=== PATIENT | male | born 1945 | race Caucasian/White ===

== ENCOUNTER 2020-05-29 16:36 | Outpatient (CLI) | payer OTHER, MEDICARE, SELFPAY | END 2020-05-29 16:37 | disposition home or self-care (01) | LOC: ANHCOVIDVC 16:36 | PROVIDERS: PCP Hospitalist | DX: Z23 Encounter for immunization (principal) | CPT/HCPCS: 0001A; 91300 ==

== ENCOUNTER 2020-06-19 16:32 | Outpatient (CLI) | payer OTHER, MEDICARE, SELFPAY | END 2020-06-19 16:33 | disposition home or self-care (01) | LOC: ANHCOVIDVC 16:33 | PROVIDERS: PCP Hospitalist | DX: Z23 Encounter for immunization (principal) | CPT/HCPCS: 0002A; 91300 ==

== ENCOUNTER 2023-03-06 16:06 | Emergency (ER) | payer OTHER, SELFPAY ==
--- NOTE | ~2023-03-06 | XR_ITS ---
XR hand LT min 3V 03/06/2023 17:25 INDICATION: Table saw laceration to left first finger distally PROCEDURE: 3 views left hand COMPARISON: No prior studies for comparison. FINDINGS: Fracture, dislocation or subluxation is not identified. 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 The soft tissues appear within normal limits. No foreign bodies are identified. IMPRESSION: 1: NO ACUTE BONE OR JOINT ABNORMALITY IDENTIFIED. Reviewed, dictated and finalized at location [facility]. [facility]
[2023-03-06 16:10] VITALS: BP 175/65; PULSE 75; RESP 16; TEMP 36.4; O2SAT 100
--- NOTE | 2023-03-06 17:16 | ED.WOUNDLAC ---
HPI - Wound/Laceration General Chief Complaint: Wound/Laceration Stated Complaint: L THUMB LAC Time Seen by Provider: 03/06/23 16:30 History of Present Illness HPI narrative: 77-year-old male reports for evaluation for a laceration to the distal phalanx of his L 1st finger that occurred prior to arrival. Patient states he was working in his wood shop and was signed a piece of plywood with a table saw. States the piece of wood flew up into his left finger thumb, he reacted and hit his left thumb on the table saw. States his tetanus is up-to-date. Bleeding controlled. He is not anticoagulated. Related Data Allergies Allergy/AdvReac Type Severity Reaction Status Date / Time No Known Allergies Allergy Unknown Verified 04/07/14 07:45 Review of Systems Review of Systems: CONSTITUTIONAL: Denies fever, chills, or sweats. EYES: Denies visual changes, redness, or discharge. ENT: Denies rhinorrhea, congestion, sore throat, or otalgia. CARDIOVASCULAR: Denies chest pain, palpitations, or edema. RESPIRATORY: Denies cough or dyspnea. GASTROINTESTINAL: Denies abdominal pain, nausea, vomiting, or diarrhea. GENITOURINARY: Denies dysuria or hematuria. SKIN: See HPI MUSCULOSKELETAL: Denies back pain, joint pain, or myalgia. NEUROLOGIC: Denies headache, numbness, or weakness. PSYCHIATRIC: Denies anxiety or depression. [facility] Family History Family History Sibling Patient's sister is in good health Mother Cerebrovascular accident, Onset Age: 87 Patient's mother is , Onset Age: 87 Social History Social History Smoking status: Never smoker Alcohol intake: current Exam Narrative: GENERAL: Well-appearing, well-nourished, and in no acute distress. HEAD: Normocephalic, atraumatic. NECK: Supple. CHEST: Clear to auscultation. No respiratory distress. HEART: Regular rate and rhythm. No murmur heard. Normal peripheral pulses. ABDOMEN: Soft, nontender, nondistended, normal active bowel sounds. EXTREMITIES: Normal range of motion. No edema. SKIN: LUE: 1cm jagged, irregular, stellate laceration to the distal phalanx of the 1st finger. Bleeding controlled. No deep structures or foreign bodies visualized. Cap refill less than 2. Radial pulse 2 +. Sensation intact throughout. Full range of motion of finger NEURO: No focal deficits. Alert and oriented x3 Course Vital Signs Vital signs: Vital Signs Temperature 97.6 F 03/06/23 16:10 Pulse Rate 75 03/06/23 16:10 Respiratory Rate 16 03/06/23 16:10 Blood Pressure 175/65 H 03/06/23 16:10 Pulse Oximetry 100 03/06/23 16:10 Oxygen Delivery Room Air 03/06/23 16:10 Temperature 97.6 F 03/06/23 16:10 Pulse Rate 75 03/06/23 16:10 Respiratory Rate 16 03/06/23 16:10 Blood Pressure 175/65 H 03/06/23 16:10 Pulse Oximetry 100 03/06/23 16:10 Oxygen Delivery Room Air 03/06/23 16:10 Procedures Laceration Laceration 1: Date: 03/06/23 Site: upper extremity Side (If applicable): left Size (cm): 1 Description: stellate and irregular Depth: simple, single layer Local Anesthetic: lidocaine 1% Amount of anesthesia used (mL): 2 Pre-repair: wound explored, irrigated and irrigated extensively ====== Skin Level ====== Skin layer closed with: nylon Size (cm): 5-0 Number of sutures: 4 Technique: simple, interrupted ====== Subcutaneous Layer ====== ====== Muscle Layer ====== ====== Tendon Layer ====== MDM - Wound/Laceration MDM Narrative Medical decision making narrative: 77-year-old male reports for evaluation for laceration to the distal phalanx of his left 1st finger that occurred prior to arrival. See HPI for further history. Vitals significant for elevated blood pressure 175/65, otherwise unremarkable. Exam
[2023-03-06] MEDS: LIDOCAINE HCL 1% LOCAL INJ 10 ML VIAL INFILTRATE (17:57)
[2023-03-06 18:34] VITALS: BP 160/78; PULSE 77; RESP 18; TEMP 36.6; O2SAT 99
== END 2023-03-06 18:37 | disposition home or self-care (01) ==
PROVIDERS: Emergency Provider Physician Assistant; PCP Internal Medicine
DX: S61.012A Laceration without foreign body of left thumb without damage to nail, initial encounter (principal); W26.8XXA Contact with other sharp object(s), not elsewhere classified, initial encounter
CPT/HCPCS: 12001; 73130; 99283

== ENCOUNTER 2024-07-23 09:44 | Outpatient (CLI) | payer OTHER, SELFPAY ==
--- NOTE | 2024-07-23 10:00 | ECG_ITS ---
Test Date: 2024-07-23 10:16:17 Measurements Intervals [place] Rate: 57 P: 79 DC: 191 QRS: 47 QRSD: 97 T: 43 QT: 396 QTc: 388 Interpretive Statements SINUS BRADYCARDIA LOW QRS VOLTAGE IN PRECORDIAL LEADS [QRS DEFLECTION < 1.0 mV IN CHEST LEADS] No previous ECG available for comparison Electronically Signed On 07-23-2024 15:01:50 CDT by J Luis Zhao M.D.
--- OUTSIDE RECORDS SUMMARY | 2024-07-23 10:00 | XMS_ITS | Clinical Summary ---
Author Organization [facility] Address [address] [place] [address] Care Team Providers Care Launch Engineer Name Role Phone Unavailable Primary Care Provider Unavailabl e Social History Tobacco Use Types Packs/Day Years Used Date Smoking Tobacco: Never Assessed Sex and Gender Information Value Date Recorded Sex Assigned at Not on file Legal Sex Male 5:41 PM CDT Gender Identity Not on file Sexual Orientation Not on file Plan of Treatment Health Maintenance Due Date Last Done Comments Hepatitis C 10/28/1963 DTaP, Tdap and Td Vaccines ( 1 - Tdap) 1964 Pneumococcal Vaccine: 50+ Ye ars (1 of 1 - PCV) 10/28/1995 Zoster Vaccines (1 of 2) 10/28/1995 RSV Immunization or 60+ Years (1 - 1-dose 75+ series) 2020 COVID-19 Vaccine ( - 2023-2 5 season) 2023 Meningococcal B Vaccine Aged Out No l onger eligible based on patient's age to complete this topic Meningococcal Vaccine Aged Out No julio cesar karoline eligible based on patient's age to complete this topic RSV Immunizations Under 20 Months Aged Out No longer eligible based on patient's age to complete this topic
[2024-07-23 10:36] LABS: Basophils Percent Auto 0.5 % (0.2-1.2); Eosinophils Absolute Auto 0.3 K/mm3 (0-0.3); Eosinophils Percent Auto 4.6 % (0-4.4); Hematocrit 41.3 % (42.0-52.0); Hemoglobin 13.1 g/dL (14.0-18.0); Immature Granulocyte Absolute 0.02 K/mm3 (0.00-0.031); Immature Granulocyte Percent A 0.3 % (0-0.5); Lymphocytes Absolute Auto 1.82 K/mm3 (0.9-3.2); Lymphocytes Percent Auto 28.7 % (18.3-44.2); Mean Corpuscular HGB Conc 31.7 g/dl (32-36); Mean Corpuscular Volume 94.5 fl (80-100); Mean Platelet Volume 10.7 fl (7.4-10.4); Monocytes Absolute Auto 0.6 K/mm3 (0.1-0.6); Monocytes Percent Auto 10.1 % (2.6-8.5); Neutrophils Absolute Auto 3.5 K/mm3 (1.3-6.7); Neutrophils Percent Auto 55.8 % (45.5-73.1); Platelet Count Result 187 k/mm3 (150-375); Red Blood Count 4.37 M/mm3 (4.6-6.20); Red Cell Distribution Width 14.3 % (11.5-14.5); White Blood Count 6.3 K/mm3 (4.5-10.0)
[2024-07-23 10:49] LABS: Anion Gap 9 mmol/L (4-12); Blood Urea Nitrogen 20 mg/dL (9-20); Calcium 9.2 mg/dL (8.4-10.2); Carbon Dioxide 27 mmol/L (22-30); Chloride 103 mmol/L (98-107); Estimated Glomerular Filt Rate > 60; Glucose 120 mg/dL (65-110); Sodium 139 mmol/L (137-145)
[2024-07-23 10:53] LABS: Prothrombin Time 13.5 Seconds (11.1-14.7)
[2024-07-23 10:54] LABS: Partial Thromboplastin Time 27.2 Seconds (22.3-36.8)
== END 2024-07-23 09:45 | disposition home or self-care (01) ==
LOC: ANHSURGERY 09:51
PROVIDERS: PCP Internal Medicine; Visit Provider Urology
DX: Z01.818 Encounter for other preprocedural examination (principal); N21.0 Calculus in bladder; R94.31 Abnormal electrocardiogram [ECG] [EKG]; R00.1 Bradycardia, unspecified; I10 Essential (primary) hypertension
CPT/HCPCS: 36415; 80048; 85025; 85610; 85730; 87086; 87181; 93005

== ENCOUNTER 2024-07-31 16:17 | Observation (INO) | payer OTHER, SELFPAY ==
[2024-07-22 10:14] VITALS: BMI 24.6
--- NOTE | 2024-07-22 10:39 | PC.NURSE ---
Report to the Outpatient Waiting Room, entrance under the green pavilion located off [facility], at time ___7:30AM____ on date ___07/30/24____. Planned Procedure Time: ___9:30AM .? Time changes happen often and if your time is changed the preop area will call you the afternoon before. - You and your visitor will be asked to self-screen and do not enter if you have any COVID symptoms. Please call surgeon if you need to reschedule. - A mask is optional within the hospital at this time. Patients may have clear liquids (water, carbonated beverages, clear teas, apple juice) until 3 hours prior to surgery (6:30AM) with a maximum of 20 ounces. - No food from midnight until time of surgery and no smoking, or chewing tobacco (or any form of nicotine). No chewing gum, candy or mints. Take only the following medications with a SIP of water on the morning of surgery: ____NONE DO NOT STOP ANY OF YOUR OTHER PRESCRIPTION MEDICATIONS PRIOR TO SURGERY EXCEPT THE FOLLOWING Hold all vitamins and supplements for 3 days per anesthesiologist.-LAST DOSE 07/26/24. Please no make-up, nail stateless, hairspray, perfume, deodorant, or body powder the day of surgery.? No jewelry (including any body piercings) or valuables the day of surgery, leave them at home.? Please take a shower or bath the night before, or the morning of, surgery with an antibacterial soap.? Wear comfortable, loose fitting clothing.? - Jewelry must be removed prior to entering the operating room.? Rings and piercings that are not removed may be cut off. - The hospital will not accept responsibility for valuables.? - Please leave all valuables, including medications, at home the day of surgery. If you are going home after surgery, a licensed equipment driver must drive you home.? - NO public transportation without another adult if you receive anesthesia. - We recommend that an adult stay with you for 24 hours following discharge. - We also recommend that you do not drive, make important decision, drink alcoholic beverages, or take any drugs that were not prescribed by your health care provider for at least 24 hours after your discharge time. Follow any additional instructions given to you from your surgeon. Telephone instructions given to ___PATIENT & WIFE and asked if any additional questions and then verbalized understanding. Patient advised to call surgeon office or pre surgery nurse liaison [phone] if any additional questions.
[2024-07-30] VITALS (12 sets, daily range): BP systolic 128–147; BP diastolic 47–75; PULSE 55–71; RESP 14–17; TEMP 36–36.3; O2SAT 98–100; BMI 25.1
--- OUTSIDE RECORDS SUMMARY | 2024-07-30 00:26 | XMS_ITS | Continuity of Care Document ---
Author Organization [facility] [place] Address [address] [place] [address] Phone Care Team Providers Care Audio Engineer Name Role Phone Ender Cochran NP Unavailable Unavailable Allergies, Adverse Reactions, Alerts Substance Reaction Status Criticality No Known Allergies Active No Inform ation Medications Medication Instructions Dosage Effective Dates (start - stop) Status Comments finasteride 5 mg tablet take 1 tablet by oral route every day 5 MG - Active tamsulosin 0.4 mg capsule take 1 capsule by oral route every day 1/2 hour following the same meal each day 0.4 MG - Active propranolol 20 mg tablet take 1 tablet by oral route every evening 20 MG - Active Multiple Vitamins tablet take 1 tablet by oral route every day 1 tablet - Active Procedures Procedure Date CBC, INC PLATELETS AND DIFFERENTIAL COMPREHEN METABOLIC PANEL CMP HEMOGLOBIN A1C HGA1C, GLYCO LIPID PANEL THYROID STIMULATION HORMONE(TSH) 2024 URINALYSIS, REFLEX (UA) FALL RISK ASSESSMENT DOC'D ROUTINE VENIPUNCTURE [place] OFFICE [id number]-[id number] BODY MASS INDEX DOCD SYST BP LT 130 MM HG DIAST BP < 80 MM HG CBC, INC PLATELETS AND DIFFERENTIAL COMPREHEN METABOLIC PANEL CMP THYROID STIMULATION HORMONE(TSH) 2023 HEMOGLOBIN A1C HGA1C, GLYCO Pt inelig neg scrn depres ROUTINE VENIPUNCTURE IL PNEUMOVAX ADM MEDICARE Pneumococcal Conjugate Vaccine (PCV20) S OFFICE [id number] BODY MASS INDEX DOCD SYST BP LT 130 MM HG DIAST BP < 80 MM HG BASIC METABOLIC PANEL(BMP) MICROALBUMIN, QN (URINE) CREATININE, (U-R) PSA, TOTAL URINALYSIS, DIPSTICK (UA) - Office Lab J ROUTINE VENIPUNCTURE [place] OFFICE [id number]-[id number]-[id number] BODY MASS INDEX DOCD SYST BP GE 130 - 139MM HG DIAST BP 80-89 MM HG CBC, INC PLATELETS AND DIFFERENTIAL COMPREHEN METABOLIC PANEL CMP LIPID PANEL THYROID STIMULATION HORMONE(TSH) 2023 URINALYSIS, REFLEX (UA) FALL RISK ASSESSMENT DOC'D PRES/ABSN URINE INCON ASSESS ROUTINE VENIPUNCTURE IL OFFICE [id number] BODY MASS INDEX DOCD SYST BP LT 130 MM HG DIAST BP < 80 MM HG OFFICE AMHBE-[id number] TELEPHONE E&M SERVICE BY A PHYSICIAN;5-1 0 MINUTES OF MEDICAL DISCUSSION CBC, INC PLATELETS AND DIFFERENTIAL COMPREHEN METABOLIC PANEL CMP 3 HEMOGLOBIN A1C HGA1C, GLYCO LIPID PANEL MICROALBUMIN, QN (URINE) CREATININE, (U-R) THYROID STIMULATION HORMONE(TSH) 2022 Pt inelig neg scrn depres ROUTINE VENIPUNCTURE [place] OFFICE [id number] BODY MASS INDEX DOCD SYST BP LT 130 MM HG DIAST BP < 80 MM HG CBC, INC PLATELETS AND DIFFERENTIAL COMPREHEN METABOLIC PANEL CMP 3 LIPID PANEL THYROID STIMULATION HORMONE(TSH) 2022 URINALYSIS, REFLEX (UA) FALL RISK ASSESSMENT DOC'D PRES/ABSN URINE INCON ASSESS ROUTINE VENIPUNCTURE [place] OFFICE OMMUQ-[id number]-GIDAZZCY BODY MASS INDEX DOCD SYST BP GE 130 - 139MM HG DIAST BP < 80 MM HG COVID-19, Amplified Probe Technique HETEROPHILE MONO TEST (OFFICE LAB) INFLUENZA, RAPID INFLUENZA B, RAPID - OFFICE LAB 022 Pt inelig neg scrn depres CBC, INC PLATELETS AND DIFFERENTIAL COMPREHEN METABOLIC PANEL CMP 2 HEMOGLOBIN A1C HGA1C, GLYCO LIPID PANEL ROUTINE VENIPUNCTURE OFFICE [id number]-[id number] BODY MASS INDEX DOCD SYST BP LT 130 MM HG DIAST BP < 80 MM HG PSA, TOTAL, SCREENING MEDICARE ONLY FALL RISK ASSESSMENT DOC'D PRES/ABSN URINE INCON ASSESS COMPREHEN METABOLIC PANEL CMP 2 HEMOGLOBIN A1C HGA1C, GLYCO LIPID PANEL THYROID STIMULATION HORMONE(TSH) 2021 URINALYSIS, REFLEX (UA) ROUTINE VENIPUNCTURE OFFICE [id number]-[id number]-[id number] BODY MASS INDEX DOCD SYST BP LT 130 MM HG DIAST BP < 80 MM HG Admin influenza virus vac FLU VACC PRSV FREE INC ANTIG Pt inelig neg scrn depres CBC, INC PLATELETS AND DIFFERENTIAL COMPREHEN METABOLIC PANEL CMP 1 LIPID PANEL PSA, TOTAL, SCREENING MEDICARE ONLY THYROID STIMULATION HORMONE(TSH) 2020 ROUTINE VENIPUNCTURE OFFICE [id number] BODY MASS INDEX DOCD SYST BP LT 130 MM HG DIAST BP < 80 MM HG Pt inelig neg scrn depres CBC, INC PLATELETS AND DIFFERENTIAL COMPREHEN METABOLIC PANEL CMP 1 LIPID PANEL THYROID STIMULATION HORMONE(TSH) 2020 ROUTINE VENIPUNCTURE OFFICE [id number]-[id number] BODY MASS INDEX DOCD SYST BP GE 130 - 139MM HG DIAST BP < 80 MM HG Admin influenza virus vac FLU VACC PRSV FREE INC ANTIG CBC, INC PLATELETS AND DIFFERENTIAL COMPREHEN METABOLIC PANEL CMP 0 LIPID PANEL ROUTINE VENIPUNCTURE OFFICE [id number]-[id number] BODY MASS INDEX DOCD SYST BP GE 130 - 139MM HG DIAST BP < 80 MM HG FALL PLAN OF CARE DOC'D URINE INCON PLAN DOC'D PRES/ABSN URINE INCON ASSESS Pt inelig neg scrn depres CBC, INC PLATELETS AND DIFFERENTIAL COMPREHEN METABOLIC PANEL CMP 0 PSA, TOTAL, SCREENING MEDICARE ONLY THYROID STIMULATION HORMONE(TSH) 2019 ROUTINE VENIPUNCTURE OFFICE [id number] BODY MASS INDEX DOCD SYST BP GE 130 - 139MM HG DIAST BP < 80 MM HG Admin influenza virus vac FLU VACC 4 NIGEL 0.5mL DOSAGE CBC, INC PLATELETS AND DIFFERENTIAL COMPREHEN METABOLIC PANEL CMP 9 LIPID PANEL PARATHYROID HORMONE (PTH) THYROID STIMULATION HORMONE(TSH) 2018 URINALYSIS, DIPSTICK (UA) - Office Lab J ROUTINE VENIPUNCTURE OFFICE [id number]-BHS-[id number] BODY MASS INDEX DOCD SYST BP LT 130 MM HG DIAST BP < 80 MM HG HEMOGLOBIN A1C HGA1C, GLYCO Advance Directives Directive Yes / No Effective Date File Name Life Support Not Answered N/A N/A Intubation Not Answered N/A N/A Antibiotics Not Answered N/A N/A IV Fluid Support Not Answered N/A N/A Tube Feed Not Answered N/A N/A Other Directive N/A N/A WARNING:The information contained in this section is historical and is provided for information only and does not constitute a legal document or any assurance that the information is still accurate. Please verify the information with the kim of the legal document before using it for clinical purposes. Encounters Encounter Description Practice Location Reason(s) For Visit Diagnoses Date Provider Providers Copied on Encounter [facility] [place], [address], [place], [place], [id number] , [place] tel: [phone] [facility] [place] No Information 5 Dimas Handley. [address] [place], [address], [place]. tel: [phone] [facility], [address], [place], [place], [address] , [place] tel: [phone] [facility] No Information 5 Kia Ferrern. [address], [id number] , . tel: [phone] Referring Provider: Ender Cochran, [address] [place] [address], [place], [address]. tel:[phone] OFFICE RRUQD-RBU-ZB [facility], [address], [place], [place], [address] , [place] tel: [phone] [facility] 6 month (chief complaint)C hronic Conditions (chief complaint) Essential (primary) hypertensionMix ed hyperlipidemiaE ssential tremorPrediabet esBenign prostatic hyperplasia with lower urinary tract symptomsNocturi a 5 [facility]. [address] [place] [address], [address], [place]. tel: [phone] Referring Provider: Tabitha Mancuso, [address] [place] [address], [address] . tel:[phone] [facility], [address], [place], [place], [address] , [place] tel: [phone] [facility] No Information 4 Kia Ferrern. [address], [id number] , . tel: [phone] Referring Provider: Ender Cochran, [address] [place] [address], [place], [address]. tel:[phone] OFFICE BQCBJ-IYB-EW [facility], [address], [place], [place], [address] , [place] tel: [phone] [facility] 6 month (chief complaint)C hronic Conditions (chief complaint) Essential (primary) hypertensionNoc turiaBenign prostatic hyperplasia with lower urinary tract symptomsPrediab etesEssential tremorMixed hyperlipidemia Sep-0 4 Dimas [facility]. [address] [place] [address], [address], [place]. tel: [phone] Referring Provider: Tabitha Mancuso, [address] [place] [address], [address] . tel:[phone] [facility], [address], [place], [place], [address] , tel: [phone] [facility] No Information 4 Kia Hager. [address], [id number] , [place]. tel: [phone] Referring Provider: Cary Artis, [address] [place] [address], [address] . tel:[phone] OFFICE ULVBY-JBK-NO [facility], [address], [place], [place], [address] , tel: [phone] [facility] urinary issues (chief complaint)C hronic Conditions (chief complaint)c hronic conditions (chief complaint) Body mass index [BMI] 24.0-24.9, adultNocturiaUr inary incontinence, unspecified typeMicroscopic hematuriaLeukoc ytes in urineEssential (primary) hypertension 4 Steff Townsend. [address] [place] [address], [id number] , [place]. tel: [phone] Referring Provider: Tabitha Mancuso, [address] [place] [address], [address] . tel:[phone] [facility], [address], [place], [place], [address] , [place] tel: [phone] [facility] No Information 4 Sagar Lu. [address] [place] [address], [id number] , [place]. tel: [phone] [facility] [address], [place], [place], [address] , tel: [phone] [facility] No Information 4 Kia Hager. [address] [facility], [address] [place], [id number] , . tel: [phone] Referring Provider: Cary Artis, [address] [place] [address], [address] . tel:[phone] [facility], [address], [place], [place], [address] , tel: [phone] [facility] Chronic Conditions (chief complaint) Body mass index [BMI] 24.0-24.9, adultEssential (primary) hypertensionMix ed hyperlipidemiaE ssential tremorNonrheuma tic mitral (valve) prolapse 4 Steff Townsend. [address] [place] [address], [id number] , [place]. tel: [phone] Referring Provider: Tabitha Mancuso, [address] [place] [address], [address] . tel:[phone] [facility], [address], [place], [place], [address] , [place] tel: [phone] [facility] suture removal (chief complaint) Encounter for removal of sutures 4 Dimas Handley. [address] [place] [address], [address], [place]. tel: [phone] Referring Provider: Tabitha Mancuso, [address] [place] [address], [address] . tel:[phone] TELEPHONE E&M SERVICE BY A PHYSICIAN;5- 10 MINUTES OF MEDICAL DISCUSSION [facility], [address], [place], [place], [address] , [place] tel: [phone] [facility] Encounter for follow-up examination after completed treatment for conditions other than malignant neoplasm 3 Sagar Lu. [address] [place] [address], [id number] , [place]. tel: [phone] Referring Provider: Tabitha Mancuso, [address] [place] [address], [address] . tel:[phone] [facility], [address], [place], [place], [address] , tel: [phone] [facility] No Information 3 Sagar Lu. [address] [place] [address], [id number] , [place]. tel: [phone] [facility], [address], [place], [place], [address] , tel: [phone] [facility] Services No Information 3 Kia Hager. [address] [place] [address], [id number] , . tel: [phone] Referring Provider: Tabitha Mancuso, [address] [place] [address], [address] . tel:[phone] OFFICE YYDAS-BSQ-IC TAILED [facility], [address], [place], [place], [address] , tel: [phone] [facility] 6 month appt (chief complaint)O ther (chief complaint)C hronic Conditions (chief complaint) Essential (primary) hypertensionMix ed hyperlipidemiaP rediabetesEssen tial tremor 3 Sagar Lu. [address] [place] [address], [id number] , [place]. tel: [phone] Referring Provider: Tabitha Mancuso, [address] [place] [address], [address] . tel:[phone] [facility], [address], [place], [place], [address] , tel: [phone] [facility] No Information 3 Kia Hager. [address], [id number] , . tel: [phone] Referring Provider: Cary Artis, [address] [place] [address], [address] . tel:[phone] OFFICE [facility], [address], [place], [place], [address] , [place] tel: [phone] [facility] Chronic Conditions (chief complaint) Essential (primary) hypertensionMix ed hyperlipidemiaN onrheumatic mitral (valve) prolapseEssenti al tremor 3 Steff Townsend. [address] [place] [address], [id number] , [place]. tel: [phone] Referring Provider: Tabitha Mancuso, [address] [place] [address], [address] . tel:[phone] [facility], [address], [place], [place], [address] , [place] tel: [phone] [facility] Sinus pressure (chief complaint) Sinus pressure 2 Sagar Lu. [address] [place] [address], [id number] , [place]. tel: [phone] Referring Provider: Tabitha Mancuso, [address] [place] [address], [address] . tel:[phone] [facility]ICE [facility], [address], [place], [place], [address] , [place] tel: [phone] [facility] Chronic Conditions (chief complaint)v isual chages (chief complaint) Body mass index [BMI] 23.0-23.9, adultMixed hyperlipidemiaE ssential (primary) hypertensionNon rheumatic mitral (valve) prolapseScreeni ng for prostate cancerPrediabet esVisual changes 2 Steff Townsend. [address] [place] [address], [id number] , [place]. tel: [phone] Referring Provider: Tabitha Mancuso, [address] [place] [address], [address] . tel:[phone] [facility], [address], [place], [place], [address] , tel: [phone] [facility] No Information 2 Sagar Lu. [address] [place] [address], [id number] , . tel: [phone] OFFICE KUTYD-AZR-JZ [facility], [address], [place], [place], [address] , tel: [phone] [facility] Chronic Conditions (chief complaint) Essential (primary) hypertensionNon rheumatic mitral (valve) prolapseMixed hyperlipidemiaI mpaired fasting glucose 2 Dimas Handley. [address] [place] [address], [address], [place]. tel: [phone] Referring Provider: Tabitha Mancuso, [address] [place] [address], [address] . tel:[phone] [facility], [address], [place], [place], [address] , [place] tel: [phone] [facility] No Information 1 Akua [place]. [address] [place] [address], [id number] , [place]. tel: [phone] Referring Provider: Tabitha Mancuso, [address] [place] [address], [address] . tel:[phone] OFFICE HMIHC-DQA-OF [facility], [address], [place], [place], [address] , [place] tel: [phone] [facility] Chronic Conditions (chief complaint) Nonrheumatic mitral (valve) prolapseEssenti al tremorEssential (primary) hypertensionMix ed hyperlipidemia 1 Sagar Lu. [address] [place] [address], [id number] , [place]. tel: [phone] Referring Provider: Tabitha Mancuso, [address] [place] [address], [place], [address] . tel: OFFICE UMVZQ-DNU-AT [facility], [address], [place], [place], [address] , tel: [phone] [facility] Chronic Conditions (chief complaint) Essential tremorNonrheuma tic mitral (valve) prolapseEssenti al hypertensionBod y mass index (BMI) 24.0-24.9, adult 1 Akua Lennie. [address] [place] [address], [id number] , [place]. tel: [phone] Referring Provider: Braxton rosas, [address] [place] [address], [address] . tel:[phone] [facility], [address], [place], [place], [address] , tel: [phone] [facility] No Information 0 Sagar Lu. [address] [place] [address], [id number] , [place]. tel: [phone] Referring Provider: Tabitha Mancuso, [address] [place] [address], [address] . tel:[phone] OFFICE ORIPZ-JNJ-WK [facility], [address], [place], [place], [address] , tel: [phone] [facility] Chronic Conditions (chief complaint) Essential tremorNonrheuma tic mitral (valve) prolapse 0 Steff Townsend. [address] [place] [address], [id number] , [place]. tel: [phone] Referring Provider: Tabitha Mancuso, [address] [place] [address], [address] . tel:[phone] OFFICE HCNVA-KYU-KQ [facility], [address], [place], [place], [address] , [place] tel: [phone] [facility] MVP f/u (chief complaint)C hronic Conditions (chief complaint) Nonrheumatic mitral (valve) prolapseEssenti al tremor 0 Sagar Lu. [address] [place] [address], [id number] , [place]. tel: [phone] Referring Provider: Tabitha Mancuso, [address] [place] [address], [address] . tel:[phone] [facility], [address], [place], [place], [address] , tel: [phone] [facility] No Information 9 Sagar Lu. [address] [place] [address], [id number] , [place]. tel: [phone] Referring Provider: Tabitha Mancuso, [address] [place] [address], [address] . tel:[phone] OFFICE TNUQN-NAA-RI PANDED [facility], [address], [place], [place], [address] , tel: [phone] [facility] Chronic Conditions (chief complaint) Benign essential tremorMitral valve prolapseImpaire d fasting glucose 9 Dimas Handley. [address] [place] [address], [address], [place]. tel: [phone] Referring Provider: Tabitha Mancuso, [address] [place] [address], [address] . tel:[phone] [facility], [address], [place], [place], [address] , tel: [phone] [facility] Body mass index (BMI) 23.0-23.9, adultMitral valve prolapseBenign essential tremor 9 Sagar Lu. [address] [place] [address], [id number] , [place]. tel: [phone] Referring Provider: Tabitha Mancuso, [address] [place] [address], [address] . tel:[phone] [facility], [address], [place], [place], [address] , tel: [phone] Administration No Information 3-201 9 Sagar Lu. [address] [place] [address], [id number] , . tel: [phone] [facility], [address], [place], [place], [address] , tel: [phone] [facility] No Information 5 8 Sagar Lu. [address] [place] [address], [id number] , . tel: [phone] [facility], [address], [place], [place], [address] , tel: [phone] [facility] No Information 0 8 Sagar Lu. [address] [place] [address], [id number] , [place]. tel: [phone] Referring Provider: Tabitha Mancuso, [address] [place] [address], [address] . tel:[phone] [facility], [address], [place], [place], [address] , tel: [phone] [facility] Body mass index (BMI) 24.0-24.9, adultEssential hypertension 9-201 8 Dimas Gaylin. [address] [place] [address], [address], [place]. tel: [phone] Referring Provider: Tabitha Mancuso, [address] [place] [address], [address] . tel:[phone] [facility], [address], [place], [place], [address] , tel: [phone] [facility] Screening for prostate cancerEssential hypertensionMit ral valve prolapseDecreas ed pedal pulses 8 Steff Townsend. [facility], [place], [id number] , [place]. tel:[phone] Referring Provider: Courtney Tran, [address] [facility] [address], [place], [address]. tel:[phone] Family History Family Member Type Diagnosis Age At Onset Mother Problem (finding) Cardiovascular disease Sister Problem (finding) Chronic obstru ctive pulmonary disease, unspecified COPD type (Cause Of ) 69 Sister Problem (finding) Tobacco user Sister Problem (finding) Father Problem (finding) sudden Brother Problem (finding) malignant neop lasm of liver (Cause Of ) 48 Sister Problem (finding) Sister Problem (finding) Sister Problem (finding) Family history unknown Sister Problem (finding) Acute anxiety Immunizations Vaccine Date Status Comments Pneumococcal conjugate PCV20 administered Source: New Immunization Record Fluzone Quad, split virus, 0.5mL dosage administered Note: [facility] ; Source: Other Provider Tdap administered Note: Vickis ; Source: Other Provider ZangZing (Diluent Recon[employer] d) COVID19 Vaccine, 0.3mL per dose, 2 doses, administered 21 days apart administered Note: Stephanie ; Taisha ce: Other Provider Fluzone High-Dose, high dose , preservative free administered Source: New Immuniza tion Record Pfizer-BioNTech COVID19 Vaccine, 0.3mL per dose, 2 doses, administered 21 days apart administered Note: vamshi ; Source: Other Provider Pfizer-BioNTech COVID19 Vaccine, 0.3mL per dose, 2 doses, administered 21 days apart administered Note: vamshi ; Source: Other Provider Fluzone High-Dose, high dose , preservative free administered Source: New Immuniza tion Record Fluzone Quad, split virus, 0.5mL dosage administered Source: New Immuniza tion Record SHINGRIX (Zoster vaccine recombinant, adjuvanted) administered Note: milton ; Source: Other Provider SHINGRIX (Zoster vaccine recombinant, adjuvanted) administered Note: Darien ; Source: Other Provider Fluzoemily Tijerina, split virus, 0.5mL dosage administered Source: New Immuniza tion Record Pneumococcal conjugate PCV 13 administere d Source: Other Provider Pneumococcal polysaccharide PPV23 administered Source: Other Provid er Zoster administered Source: Other P rovider Payers Payer name Insurance type Covered alliance party ID Authoriza tion(s) [employer] MB [id number] [employer] MB [id number] [employer] MB [id number] [employer] MB [id number] [employer] MB [id number] Social History Type Description Quantity Date Captured Comments Alcohol Use Details Unknown Caffeine Use Details Unknown Tobacco Use Status No Information Smoking Status No Information Sex Male Sexual Orientation Straight or heterosexual Gender Identity Male Chief Complaint And Reason For Visit No Information Reason For Referral Reason For Referral No Information Plan Of Treatment Date Type Action Status Goal Dietary manageme nt education, guidance, and counseling completed Goal Dietary manageme nt education, guidance, and counseling completed Goal Dietary manageme nt education, guidance, and counseling completed Goal Dietary manageme nt education, guidance, and counseling completed Referral Referred To: [facility] - Any Provider Ordered: Referrals: Urology. [facility] - Any Provider. Evaluation/diagnostic/treatment - Level 3 ordered Referral Referred To: Naresh Quinones [address] [place], [phone] Ordered: Referrals: Ophthalmology. Naresh Quinones. Evaluation/diagnostic/treatment - Level 3 ordered Appointment Phil Pablo BOOKED History Of Present Illness Encounter Date Complaint History Of Prese nt Illness Chronic Conditions *See Chronic Conditions HPI 6 month Chronic Conditions *See Chronic Conditions HPI 6 month Here for 6-month follow-up. States that he retired from [employer] on November 09. He is spending a lot more time doing woodworking in his shop. urinary issues Patient presents for acute encounter with complaints of nocturia and urinary incontinence since April.reports prior to April he was sleeping through the night without having to get up to urinatehas been urinating approximately 3 times every evening and waking up incontinent up to 3 times each nightHe denies dysuria, fever, chills, back pain, and abdominal pain.He denies a family history of prostate cancer. PSA was normal last October.Urine was positive for leukocytes and blood.He denies polyuria, polydipsia, and polyphagia. A1c was normal last year.denies urinary frequency and hesitancy during the dayis drinking 1.5 cups of coffee and occasional iced tea Chronic Conditions *See Chronic Conditions HPI chronic conditions *See Chronic Conditions HPI Chronic Conditions *See Chronic Conditions HPI suture removal pt here today to have 4 sutures removed from left thumb, pt was seen in ER on 03/06/23.Removed coban and band-aids from the thumb, pt stated he had been changing dressing everyday and cleaning and using neosporin.after removing the 4 sutures wound still looked somewhat open so I applied 3 steri strips and informed pt to leave on until they fall off on their own.The wound was very clean, no drainage or redness.Pt verbalized understanding to leave steri strips on and to keep them cleanPt informed to call if he notices any redness or drainage from wound Chronic Conditions *See Chronic Conditions HPI 6 month appt -Hypertensionpt denies headaches, dizziness, nausea, lightheadedness, chest pain, palpitationspt does not monitor BP at homept verbalized he is compliant w/ medication -Prediabetespt denies increase urinary frequency, blurred visionpt working on healthier diet choices, exercise as tolerated.Weight gained since last OV: 1 lb Other pt due for:n/aRe cent visits:n/aFuture appt:n/aVaccinations due:pt up to date on vaccinationsOutstanding referrals:n/aQuestions:No questions 6 month Ophthalmology - Pt unsureSent request for consult notes Chronic Conditions *See Chronic Conditions HPI Sinus pressure Pt positive for covid. Calvin celis sent. visual chages The patient repo rts worsening vision at night.is due for eye exam Chronic Conditions *See Chronic Conditions HPI Chronic Conditions *See Chronic Conditions HPI Chronic Conditions *See Chronic Conditions HPI Chronic Conditions *See Chronic Conditions HPI Chronic Conditions *See Chronic Conditions HPI MVP f/u Chronic Conditions *See Chronic Conditions [facility] Chronic Conditions *See Chronic Conditions HPI Functional Status Date Functional Assessmen t No Information Instructions Date Instruction Additional Infor matt As above.Call with a claudio questions or concernsLabs todayReturn in 6 months Related to Nocturia Continue on the prop ranolol. Call if this worsens Related to Essential tremor Continue on current medication. Blood pressure stable Related to Essential (primary) hypertension Continue current med ication and follow-up with urology.I will take care of the referral Related to Benign prostatic hyperplasia with lower urinary tract symptoms Levels will be checked. Related to Mixed hyperlipidemia This is noted on pre vious labs.You are doing an excellent job staying active. Keep up with your workout routine. Related to Prediabetes Disease process Fall Risk Prevention Urinary Incontinence Continue with well-b alanced diet and getting fiber.Levels will be monitored.Call with any questions or concernsCBC, CMP, A1c, TSH todayPrevnar 20 todayReturn in 6 months Related to Mixed hyperlipidemia Continue on proprano lol. Call if this worsens Related to Essential tremor A1C will be checked. Related to Prediabetes Continue on current medication and follow-up with urology in December.I am glad this is getting better. Related to Benign prostatic hyperplasia with lower urinary tract symptoms Blood pressure stabl e on propranolol. No changes. Related to Essential (primary) hypertension As above. Related to Noctu rafal Disease process Urine will be sent f or culture to rule out infection Related to Leukocytes in urine Your blood pressure is well controlled today.Continue your current medications.Please call the office with any issues, questions, or concerns prior to your next appointment.Follow-up in November as scheduled Related to Essential (primary) hypertension As stated above Related to Micro scopic hematuria As stated above Related to Urina ry incontinence, unspecified type We will order lab wo rk and urine studies to rule out abnormalities and call you with result.Continue to limit your fluids in the evening as well as your caffeine and call us with any changes Related to Nocturia Weight monitoring Related to Bod y mass index (BMI) 24.0-24.9, adult Disease process Dietary management e ducation, guidance, and counseling Related to Body mass index (BMI) 24.0-24.9, adult Continue your propan olol as prescribed.Please call the office if you develop chest pain, shortness of breath, or dizziness Related to Nonrheumatic mitral (valve) prolapse Continue with the pr opranolol for the mitral valve prolapse as well as to help with the tremor Related to Essential tremor Cholesterol levels w ere increased last year compared to previous levels.We will check levels again today Related to Mixed hyperlipidemia Your blood pressure is well controlled today.Continue your current medications.We will check routine labs today.Please call the office with any issues, questions, or concerns prior to your next appointment.Follow up again in 6 months Related to Essential (primary) hypertension Fall Risk Prevention Giving encouragement to exercise Related to Body mass index (BMI) 24.0-24.9, adult Dietary management e ducation, guidance, and counseling Related to Body mass index (BMI) 24.0-24.9, adult Urinary Incontinence Disease process I will check your ch olesterol levelsno need for medication at the present time Related to Mixed hyperlipidemia your blood pressure is stableno changes in medication Related to Essential (primary) hypertension labs will be checked Related to Prediabetes Continue with the pr opranolol for the mitral valve prolapse as well as to help with the tremor Related to Essential tremor Disease process stablePlease call e office if this significantly worsens Related to Essential tremor Continue your propan olol as prescribed.Please call the office if you develop chest pain, shortness of breath, or dizziness Related to Nonrheumatic mitral (valve) prolapse We will check your c holesterol levels again today Related to Mixed hyperlipidemia Your blood pressure is well controlled today.Continue your current medications.We will check routine labs today.CBC, CMP, lipid panel, TSH, and urinalysisPlease call the office with any issues, questions, or concerns prior to your next appointment.Follow up again in 6 months Related to Essential (primary) hypertension Fall Risk Prevention Urinary Incontinence Disease process I will send a referr al to [facility] today.I would recommend Dr. Quinones or Dr. Hess.The number to their [place] office is .Feel free to call them to schedule an appointment if you do not hear from them Related to Visual changes We will check your PSA again tod ay Related to Screening for prostate cancer Your A1c was 5.7 in April.This is the start of the prediabetic range.We will check this again at your next follow up Related to Prediabetes stable at presentcal l me if you develop dizziness or lightheadedness Related to Nonrheumatic mitral (valve) prolapse Your blood pressure is well controlled today.Continue your current medications.We will check routine labs today.CBC, CMP, lipid panel, and PSAPlease call the office with any issues, questions, or concerns prior to your next appointment.Follow up again in 6 months Related to Essential (primary) hypertension Your cholesterol has been slightly elevated in the past.This is something we will keep an eye on.no need to start medication at this point Related to Mixed hyperlipidemia Dietary management e ducation, guidance, and counseling Related to Body mass index (BMI) 23.0-23.9, adult Weight monitoring Related to Bod y mass index (BMI) 23.0-23.9, adult Disease process we will check A1cSta tus: Meeting treatment plan goals. Goals: Your goal is to be active. Barriers: No barriers to goal achievement have been identified. Related to Impaired fasting glucose Your blood pressure is well controlled todayno change in medications at this timemonitor from home and call if you notice it consistently above 140/90 Related to Essential (primary) hypertension Your cholesterol has been slightly elevated in the pastThis is something we will keep an eye on no need to start medication at this pointCall with any questions or concernscmp, lipids, A1c, uareturn in 6 monthsPSA next visit Please continue to follow COVID precautions including: wearing a mask or face covering in public, washing your hands frequently and remaining socially distant when in public. Related to Mixed hyperlipidemia stable at presentcal l me if you develop dizziness or lightheadedness Related to Nonrheumatic mitral (valve) prolapse Fall Risk Prevention Urinary Incontinence Exercise stable at presentcal l me if you develop dizziness or lightheadedness Related to Nonrheumatic mitral (valve) prolapse well controlled with current medication Related to Essential tremor blood pressure is st ableno change in medication Related to Essential (primary) hypertension Your cholesterol has been slightly elevated in the pastThis is something we will keep an eye on no need to start medication at this pointreturn to me in Nov/ for your FLU shot and return in 6 months for a routine office visitcall me with questions or concerns Related to Mixed hyperlipidemia Disease process blood pressure is we ll controlledno changes Related to Essential hypertension call if you develop heart racing/fluttering, chest pain, shortness of breath, dizzinesscontinue with the propanolol Related to Nonrheumatic mitral (valve) prolapse This is well control led with the current medication.We will check labs today.Continue with social distancing.AVOID CROWDS AVOID TOUCHING YOUR FACE AVOID UNNECESSARY TRAVEL. WASH HANDS OFTEN. CALL WITH QUESTIONS/CONCERNS Please call the office with any issues, questions, or concerns prior to your next appointment.Follow up again in 6 months Related to Essential tremor Dietary management e ducation, guidance, and counseling Related to Body mass index (BMI) 24.0-24.9, adult Disease process Weight monitoring Related to Bod y mass index (BMI) 24.0-24.9, adult stableno recent issu es with fast heart ratecontinue with the propanolol Related to Nonrheumatic mitral (valve) prolapse This is well control led with the current medication.We will check labs today.CBC, CMP, and lipid panelContinue with social distancing.AVOID CROWDS AVOID TOUCHING YOUR FACE AVOID UNNECESSARY TRAVEL. WASH HANDS OFTEN. CALL WITH QUESTIONS/CONCERNS Please call the office with any issues, questions, or concerns prior to your next appointment.Follow up again in 6 months Related to Essential tremor Medication management controlled with the current medicationreturn to us in 6 monthscall me with questions or concernscmp cbc tsh to be checked Related to Essential tremor stableno recent issu es with fast heart ratecontinue with the propanolol Related to Nonrheumatic mitral (valve) prolapse Disease process continue on propranolol Related to Mitral valve prolapse controlled on curren t propranololcall if this changesCall with any questions or concernscbc, cmp, lipids, TSH, dipstick todayreturn in 6 monthsPersonal and family medical history reviewed. Medications reviewed and continue as directed. Continue exercise as tolerated and maintain healthy low fat diet. Discussed weight, diet, exercise, immunizations, and healthy lifestyle.call us in November/December for flu shot Related to Benign essential tremor Disease process Disease process Disease process Assessments Type Assessment Date No Information Patient Care Teams Name Effective Dates (start - stop) Status Members No Information
--- OUTSIDE RECORDS SUMMARY | 2024-07-30 00:26 | XMS_ITS | Clinical Summary ---
Author Organization [facility] Address [address] [place] [address] Care Team Providers Care Department Of Mathematics Chair Name Role Phone Unavailable Primary Care Provider [...]
--- NOTE | 2024-07-30 07:31 | WPDHPUPDATE1 ---
History and Physical Update Update Date/Time: 07/30/24 07:31 History and Physical has been reviewed, including an updated exam of the patient. There are NO changes in the patient's condition. Risks, benefits, and alternatives have been discussed and questions answered. Patient agrees to proceed with procedure. Proceed with cystoscopy, laser of bladder stones, possible turp
--- NOTE | 2024-07-30 08:23 | P.PNAN_ITS ---
Anes - Initial Pre Proc Eval Procedure: Operation Date: 07/30/24 09:30 Proposed Procedures p Cystoscopy, Laser of Bladder Stones, - Wilner Black MD s Possible Trans Urethral Resection Prostate - Wilner Black MD Date/Time: 07/30/24 08:23 Surgeon: Wilner Black MD Pre Op Diagnosis: bladder stones, BPH Patient Data Age: 78 Gender: M Height: 1.88 m Weight: 87 kg Allergies Allergy/AdvReac Type Severity Reaction Status Date / Time No Known Allergies Allergy Unknown Verified 07/22/24 10:09 Home Medications ?Medication ?Instructions ?Recorded ?Confirmed ?Type finasteride 5 mg tablet 5 mg PO DAILY 07/22/24 07/22/24 History geriatric multivitamin-min 1 tablet PO DAILY 07/22/24 07/22/24 History propranolol 20 mg tablet 20 mg PO HS 07/22/24 07/22/24 History tamsulosin 0.4 mg capsule 0.4 mg PO Q24H 07/22/24 07/22/24 History Patient hx anesthesia problems: none Family hx anesthesia problems: none Results Review: All pre-operative results and documents have been reviewed as part of the pre- operative evaluation. [facility] Past Medical History Medical History (Updated 07/30/24 @ 08:27 by Bang Mckeon DO) Hyperlipidemia Hypertension Family History Family History Sibling Patient's sister is in good health Mother Cerebrovascular accident, Onset Age: 87 Patient's mother is , Onset Age: 87 Social History Social History Smoking status: Never smoker Alcohol intake: current Drinks per week: 2 Living arrangements: with family Additional living arrangements comments: Spiritual care concerns: No Anes - Eval Final PreProcedure Day of Procedure 07/30/24 08:23 Patient weight: normal Heart: regular rate and rhythm Lungs: clear to auscultation and normal air movement Airway: Mallampati scale class II Neurological: alert and oriented Last oral intake: >/= 8 hours ASA classification: II Emergent: no Anesthetic plan: proceed Anesthesia type and monitoring: general LMA and standard monitoring Results Review: All pre-operative results and documents have been reviewed as part of the pre- operative evaluation. Informed Consent: The patient's anesthetic plan and its attendant risks and benefits were discussed with the patient/family/POA. Questions were solicited and answers provided to the satisfaction of the patient/family/POA.
[2024-07-30] MEDS: LACTATED RINGERS 1,000 ML 30 ML IV CONT (08:30)
[2024-07-30] MEDS: ceFAZolin 2 GM/D5W 50 ML 2 GM/50 ML BAG IVPB (09:29)
[2024-07-30] MEDS: LIDOCAINE 2% GEL UROJET 10 ML PKG MUCOUS MEM (09:42)
--- NOTE | 2024-07-30 10:15 | P.OP_ITS ---
Procedure Note - Detailed Date of Procedure 07/30/24 Pre-op Diagnosis bladder stones, BPH Post-op Diagnosis Same Procedure Performed Cystoscopy with holmium laser of bladder stones less than 2.5 cm, transurethral resection of prostate, complex Howe catheter placement Surgeon Wilner Black MD Anesthesia General Description of Procedure Patient was taken to the operative suite correctly identified. Once anesthesia was obtained he was placed in dorsal lithotomy position and prepped and draped usual sterile fashion. Meatus was dilated to 28 [place]. Twenty-two [place] scope was inserted into the bladder. There were no urethral strictures. He has approximately 4 stones present. The smaller was retrieved without any issues. The larger ones required holmium laser. These were fragmented the specimens were retrieved and sent for analysis. All the patient may have an atonic component to his bladder and the prostate did not appear overly obstructive I did go ahead and resect some of the prostate from the bladder neck to the vera. Hemostasis was achieved using electrocautery. 2% viscous lidocaine was inserted urethra. Twenty-four three-way was placed with 20 cc in the balloon. He was taken recovery stable condition. He will be admitted for CBI. He is aware that he still may have difficulty emptying his bladder despite this channel TURP. This completes dictation. Please send a copy of op note to my office. Estimated Blood Loss 25 Drains Yes Packing No Pathology Yes Complications No immediate complications Condition Stable Disposition PACU
--- NOTE | 2024-07-30 12:24 | PC.NURSE ---
This patient, Phil Pablo, was admitted to [facility] Surg Room 315-01. Patient/family oriented to hospital policies and general routines including ID bracelet, bed and alarms, visiting hours, pain management, procedures, bathroom and other care routines, personal items, smoking policy, room service/diet, and visiting hours. Information on how to activate the Rapid Response Team has been discussed. Patient/Family are encouraged to report perceived risks to care and to ask questions if they do not understand what they are told or what they should do.
[2024-07-30] MEDS: HYDROcodone/acetaminophen (*CRX) 5-325 MG TABLET 1 TAB PO ×2 (14:25→19:51)
[2024-07-30] MEDS: DOCUSATE SODIUM 100 MG CAPSULE PO (16:38)
[2024-07-30] MEDS: ceFAZolin 1 GM/NS 50 ML 1 GM/50 ML BAG IVPB (16:38)
[2024-07-31] MEDS: ceFAZolin 1 GM/NS 50 ML 1 GM/50 ML BAG IVPB (02:01)
[2024-07-31 03:30] VITALS: BP 131/62; PULSE 60; RESP 16; TEMP 36.5; O2SAT 98
[2024-07-31 06:29] LABS: Hematocrit 41.2 % (42.0-52.0); Hemoglobin 12.9 g/dL (14.0-18.0)
[2024-07-31 06:44] LABS: Anion Gap 6 mmol/L (4-12); Blood Urea Nitrogen 20 mg/dL (9-20); Calcium 8.5 mg/dL (8.4-10.2); Carbon Dioxide 26 mmol/L (22-30); Chloride 102 mmol/L (98-107); Estimated CRCL calculation 70 ml/min; Estimated Glomerular Filt Rate > 60; Glucose 112 mg/dL (65-110); Potassium 4.1 mmol/L (3.4-5.0); Sodium 134 mmol/L (137-145)
[2024-07-31] MEDS: CEPHALEXIN 500 MG CAPSULE PO ×4 (09:01→20:38)
[2024-07-31] MEDS: DOCUSATE SODIUM 100 MG CAPSULE PO ×2 (09:01→17:06)
[2024-07-31 10:46] VITALS: PULSE 80
[2024-07-31] MEDS: PROPRANOLOL HCL 20 MG TABLET PO (10:46)
[2024-07-31 13:49] VITALS: BP 117/61; PULSE 63; RESP 16; TEMP 36.6; O2SAT 100
--- NOTE | 2024-07-31 16:45 | WPDUROPN2 ---
Progress Note: A&P Assessment and Plan (1) BPH loc w urin obs/LUTS: Code(s): N40.1 - Benign prostatic hyperplasia with lower urinary tract symptoms Status: Acute (2) Bladder stones: Code(s): N21.0 - Calculus in bladder Status: Acute Plan POD 1 Cystoscopy with holmium laser of bladder stones less than 2.5 cm, transurethral resection of prostate, complex Howe catheter placement -Patient to stay overnight for worsening hematuria. -resume CBI to run through the night. stop at 0600. -Plan for Discharge after reevaluating hematuria in the morning. -Patient may resume home propanolol. Subjective Subjective Date/Time Seen: 07/31/24 16:45 Interval history: 78y old male that had Cystoscopy with holmium laser of bladder stones less than 2.5 cm, transurethral resection of prostate, complex Howe catheter placement on 07/30/[address] Black. Today is POD 1 and CBI has been turned off but within a couple hours the patient had a BM and then started having fruit punch colored urine. Review of Systems Review of Systems: All systems reviewed & are unremarkable except as noted in HPI and below Exam Const: General: comfortable and no acute distress Eyes: General: appearance normal, both eyes and all related structures Neck: Neck: supple Resp: Effort & Inspection: normal respiratory effort Urinary Catheter: Urinary Catheter: patent and draining (CBI has been restarted due to fruit punch colored urine. ) Skin: General skin exam: normal color and no rashes or lesions noted Neuro: Speech: normal speech Psych: Mental Status: mental status grossly normal Objective Data Vital Signs Vital Signs: Vital Signs - 24 hr 07/30/24 17:49 07/30/24 20:12 07/30/24 23:42 Temperature 97.2 F L 97.1 F L 97.2 F L Pulse Rate 56 L 60 64 Respiratory Rate 14 16 16 Blood Pressure 133/74 142/47 H 130/66 Pulse Oximetry 100 100 99 Oxygen Delivery 07/31/24 03:30 07/31/24 08:00 07/31/24 10:46 Temperature 97.7 F Pulse Rate 60 80 Respiratory Rate 16 Blood Pressure 131/62 Pulse Oximetry 98 Oxygen Delivery Room Air 07/31/24 13:49 Temperature 97.8 F Pulse Rate 63 Respiratory Rate 16 Blood Pressure 117/61 Pulse Oximetry 100 Oxygen Delivery Intake/Output Intake/Output: Intake & Output 07/28/24 07/29/24 07/30/24 07/31/24 23:59 23:59 23:59 23:59 Intake Total 6370 6530 Output Total 96800 5900 Balance -6230 630 Meds/Results Medications: Active Medications Generic Name Dose Route Start Last Admin Trade Name Freq PRN Reason Stop Dose Admin Hydrocodone Bitart/Acetaminophen 1 tab 07/30/24 12:04 07/30/24 19:51 Hydrocodone/Acetaminophen (*Crx) 5-325 Mg Tablet PO 1 tab Q4H PRN Administration Pain Rated 1-6 Cephalexin HCl 500 mg 07/31/24 09:00 07/31/24 13:18 Cephalexin 500 Mg Capsule PO 500 mg QID SERENA Administration Docusate Sodium 100 mg 07/30/24 17:00 07/31/24 09:01 Docusate Sodium 100 Mg Capsule PO 100 mg BID SERENA Administration Hyoscyamine 0.125 mg 07/30/24 12:04 Hyoscyamine Sulfate 0.125 Mg Tablet SUBLINGUAL Q6H PRN Bladder Spasm Morphine Sulfate 2 mg 07/30/24 12:04 Morphine Sulfate (*Crx) 2 Mg/Ml Inj IV PUSH Q2H PRN Pain Rated 7-10 Naloxone HCl 0.1 mg 07/30/24 12:04 Naloxone Hcl 0.4 Mg/Ml Vial IV PUSH Q2M PRN Opiate Reversal Ondansetron HCl 4 mg 07/30/24 12:04 Ondansetron Inj 4 Mg/2 Ml Vial IV PUSH Q12H PRN Nausea And Vomiting Polyethylene Glycol 17 gm 07/31/24 09:56 Polyethylene Glycol 3350 17 Gm Powd.Pack PO QAM PRN Constipation Propranolol HCl 20 mg 08/01/24 21:00 Propranolol Hcl 20 Mg Tablet PO QHS [facility] Labs Labs: Laboratory Results - last 24 hr 07/31/24 05:48 Hgb 12.9 L Hct 41.2 L Sodium 134 L Potassium 4.1 Chloride 102 Carbon Dioxide 26 Anion Gap 6 BUN 20 Creatinine 0.86 Estim Creat Clear Calc 70 Estimated GFR > 60 Glucose 112 H Calcium 8.5
[2024-07-31 20:00] VITALS: PULSE 63; RESP 16; O2SAT 100
[2024-07-31 22:00] VITALS: BP 124/58; PULSE 64; RESP 18; TEMP 36.6; O2SAT 98
[2024-08-01 06:00] VITALS: BP 140/98; PULSE 62; RESP 18; TEMP 36.3; O2SAT 98
[2024-08-01] MEDS: DOCUSATE SODIUM 100 MG CAPSULE PO (08:40)
[2024-08-01] MEDS: CEPHALEXIN 500 MG CAPSULE PO (08:40)
--- NOTE | 2024-08-01 12:56 | PM.DS ---
DS: Admitting Diagnosis Discharge Date 08/01/2024 Admitting Diagnosis BPH and Bladder stones DS: Discharge Diagnosis Discharge Diagnosis (1) BPH loc w urin obs/LUTS: Code(s): N40.1 - Benign prostatic hyperplasia with lower urinary tract symptoms Status: Acute (2) Bladder stones: Code(s): N21.0 - Calculus in bladder Status: Acute Plan POD 2 Cystoscopy with holmium laser of bladder stones less than 2.5 cm, transurethral resection of prostate, complex Grace catheter placement -Patient able to discharge. -Call office for one week follow up appointment. -Keep grace on discharge. Follow restrictions discussed with Dr. Black and myself. Call the office with questions or concerns. -Patient aware and agreeable to plan DS: Summary Hospital Course Hospital Course: 07/30/2024 Cystoscopy with holmium laser of bladder stones less than 2.5 cm, transurethral resection of prostate, complex Grace catheter placement Status at Discharge Overall status at discharge: patient is back to baseline Time Spent with Patient Time attestation: Total time spent providing and/or coordinating discharge services: Exam Const: General: comfortable and no acute distress Eyes: General: appearance normal, both eyes and all related structures Neck: Neck: supple Resp: Effort & Inspection: normal respiratory effort Urinary Catheter: Urinary Catheter: patent and draining and urine pink Skin: General skin exam: normal color and no rashes or lesions noted Neuro: Speech: normal speech Psych: Mental Status: mental status grossly normal DS: Data Data Completed and Pending Completed studies during hospitalization: Pending at discharge 07/30/24 09:57 Surgical [PTH] Routine Surgical [PTH] Routine Discharge Plan Discharge Attending physician on discharge: Wilner Black Discharging Clinician: Prema Gamez Patient Disposition: Home Activity: no straining, pelvic rest and other - see discharge instructions Diet: regular Discharge Instructions: Follow restrictions given by Dr. Black and myself. Patient Instructions: Antibiotic Form Patient Language: Indonesian Stand Alone Forms: General Discharge Information Follow-up/Referrals: Wilner Black MD [Physician] - (one week follow up ) Discharge Medications: New hyoscyamine sulfate [Anaspaz] 0.125 mg Tablet,Disintegrating 0.125 mg sublingual Q6H PRN (Reason: Bladder Spasm) Qty: 28 0RF Continued propranolol 20 mg tablet 20 mg PO HS geriatric multivitamin-min Tablet 1 tablet PO DAILY tamsulosin 0.4 mg capsule 0.4 mg PO Q24H finasteride 5 mg tablet 5 mg PO DAILY Date of admission: 07/31/24 16:17 Primary Care Provider: Sagar,Tabitha Perez Admitting Provider: Wilner Black Attending physician on admission: Wilner Black Condition: Stable
== END 2024-08-01 14:20 | disposition home or self-care (01) ==
LOC: ANHSURGERY 16:27 → ANH3MEDSUR 16:27
PROVIDERS: Admitting Provider Urology; PCP Internal Medicine; Visit Provider Urology
PROC: (CPT 52352; principal; 2024-07-30 09:30)
PROC: 0VT08ZZ Resection of Prostate, Via Natural or Artificial Opening Endoscopic (ICD-10-PCS; CPT 52601; 2024-07-30 09:30)
DX: N21.0 Calculus in bladder (principal); N40.1 Benign prostatic hyperplasia with lower urinary tract symptoms; R33.8 Other retention of urine; E78.5 Hyperlipidemia, unspecified; I10 Essential (primary) hypertension; Z79.899 Other long term (current) drug therapy
CPT/HCPCS: 52317; 53899; 36415; 80048; 82365; 85014; 85018; 88300; 88305; A9270; C1769; G0378; J0690; J2003; J2405; J2704; J3010; J7120